=== PATIENT | male | born 1955 | race African-American/Black ===

== ENCOUNTER 2024-10-30 06:39 | Inpatient (IN) | payer MEDICARE, MEDICAID ==
[~2024-10-30] VITALS: Ht 177.8 cm; Wt 69.4 kg
[2024-10-30] VITALS (11 sets, daily range): BP systolic 129–159; BP diastolic 63–87; PULSE 67–89; RESP 14–20; TEMP 36.4–37.1; O2SAT 93–97
[~2024-10-30 06:39] MED LIST: CALC667C4 PO; GABA-1180 MT; HYDR-4005 PO; LACT10SO7 MT; SEVE800T8 MT
[2024-10-30] MEDS: ADENOSINE 3 MG/ML 2ML VIAL IV ONE ×2 (06:45→07:03)
[2024-10-30 07:44] LABS: BASOPHILS % 0.7 % (0.0-2.0); EOSINOPHILS % 5.5 % (0.0-5.0); HEMATOCRIT. 35.6 % (42.0-52.0); HEMOGLOBIN. 11.2 g/dL (14.0-18.0); LYMPHOCYTES % 14.4 % (20.0-50.0); MEAN CORPUSCULAR HEMOGLOBIN 28.9 pg (28.0-32.0); MEAN CORPUSCULAR HGB CONC 31.5 g/dL (31.0-37.0); MEAN CORPUSCULAR VOLUME 91.8 fL (80.0-94.0); MEAN PLATELET VOLUME 7.6 fl (7.4-10.4); MONOCYTES % 11.7 % (2.0-8.0); NEUTROPHILS % 67.7 % (40.0-76.0); PLATELET 197 x1000/uL (130-400); RED BLOOD CELL COUNT 3.88 mill/uL (4.7-6.1); RED CELL DISTRIBUTION WIDTH 19.1 % (11.6-14.6); WHITE BLOOD COUNT 8.9 x1000/uL (4.5-11.0)
[2024-10-30 07:53] LABS: CHLORIDE 94 mEq/L (98-107); POTASSIUM 4.1 mEq/L (3.5-5.1); SODIUM 140 mEq/L (136-145)
[2024-10-30 07:54] LABS: CALCIUM 8.9 mg/dL (8.7-10.4); CARBON DIOXIDE 33 mEq/L (21-32)
[2024-10-30 07:59] LABS: GLUCOSE 106 mg/dL (70-105); UREA NITROGEN BLOOD 24 mg/dL (9-23)
[2024-10-30 08:00] LABS: TROPONIN I HIGH SENSITIVITY 21 ng/L (3.0-53)
[2024-10-30 08:20] LABS: HEPATITIS B SURFACE ANTIGEN NEGATIVE (Negative)
[2024-10-30 08:26] LABS: CREATININE 7.6 mg/dL (0.6-1.3)
[2024-10-30 08:40] LABS: HEPATITIS A AB IGM NEGATIVE (Negative)
[2024-10-30 08:41] LABS: HEPATITIS B CORE AB IGM NEGATIVE (Negative); HEPATITIS C AB NON REACTIVE (Neg) (Negative)
[2024-10-30] MEDS: PIPERACILLIN/TAZO 3.375G/50ML 50 ML IV ONE (08:56)
[2024-10-30] MEDS: SODIUM CHLORIDE 0.9% (SEPSIS BOLUS) IV ONE (08:56)
[2024-10-30] MEDS: SODIUM CHLORIDE 0.9% 1,000 ML IV ONE (09:00)
[2024-10-30] MEDS: IOHEXOL-350 100 ML BOTTLE ONE (09:21)
[2024-10-30] MEDS: VANCOMYCIN 1G PREMIX 200 ML IV ONE (10:12)
[2024-10-30 11:36] LABS: ALANINE AMINOTRANSFERASE < 7 IU/L (10-49); ALBUMIN 3.9 g/dL (3.2-4.8); BILIRUBIN TOTAL 0.3 mg/dL (0.1-1.0); PROTEIN TOTAL 7.3 g/dL (6.0-8.3)
[2024-10-30 11:53] LABS: ASPARTATE AMINOTRANSFERASE < 8 IU/L (<34); BILIRUBIN DIRECT < 0.1 mg/dL (<=3.0)
[2024-10-30] MEDS ORDERED: IOHEXOL-350 100 ML BOTTLE ONE (13:10)
[2024-10-30] MEDS ORDERED: AMLO10TA80 PO (15:40)
[2024-10-30] MEDS: SEVELAMER CARBONATE 800 MG TABLET PO SCH (17:37)
[2024-10-30] MEDS ORDERED: CALCIUM ACETATE 667MG CAPSULE PO SCH (17:40)
[2024-10-30] MEDS ORDERED: MAGNESIUM/ALUMINUM HYDROXIDE/SIMETHICONE 30ML UDC PO PRN (20:30)
[2024-10-30] MEDS ORDERED: ONDANSETRON HCL 4MG/2ML INJ IV PRN (20:30)
[2024-10-30] MEDS ORDERED: CLONIDINE 0.1MG TABLET PO PRN (20:30)
[2024-10-30] MEDS ORDERED: DIPHENHYDRAMINE 50MG/ML VIAL IV PRN (20:30)
[2024-10-30] MEDS ORDERED: ACETAMINOPHEN 325MG TABLET PO PRN ×2 (20:30)
[2024-10-30] MEDS: GABAPENTIN 300MG CAPSULE PO SCH (20:31)
[2024-10-30] MEDS: METOPROLOL TARTRATE 25MG TABLET PO SCH (20:32)
[2024-10-30] MEDS ORDERED: NALOXONE HCL 0.4MG/ML VIAL IV PRN (21:00)
[2024-10-30] MEDS: SODIUM CHLORIDE 0.9% 3ML FLUSH IVF SCH (22:00)
[2024-10-31] VITALS: BP 131/64; PULSE 68; RESP 22; TEMP 36.7
[2024-10-31 04:00] VITALS: BP 116/68; PULSE 73; RESP 18; TEMP 36.9
[2024-10-31 06:50] LABS: CALCIUM 8.9 mg/dL (8.7-10.4)
[2024-10-31 08:00] VITALS: BP 133/68; PULSE 74; RESP 15; TEMP 36.4; O2SAT 98
[2024-10-31 08:39] LABS: CREATININE 8.1 mg/dL (0.6-1.3)
[2024-10-31] MEDS: AMLODIPINE 10MG TABLET PO SCH (08:43)
[2024-10-31] MEDS: ASPIRIN 81MG TABLET PO SCH (11:58)
[2024-10-31 12:00] VITALS: BP 125/61; PULSE 69; RESP 15; TEMP 36.7; O2SAT 97
[2024-10-31] MEDS: ENOXAPARIN 80MG/0.8ML SYR SUBCUT NR (12:07)
[2024-10-31 16:00] VITALS: BP 129/57; PULSE 70; RESP 16; TEMP 36.4; O2SAT 98
[2024-10-31 16:36] LABS: PROTHROMBIN TIME 10.7 sec (9.6-11.0)
[2024-10-31 20:00] VITALS: BP 130/60; PULSE 72; RESP 20; TEMP 37.1; O2SAT 98
[2024-10-31] MEDS: ZOLPIDEM TARTRATE 5MG TABLET PO PRN (20:48)
[2024-11-01] VITALS (15 sets, daily range): BP systolic 115–161; BP diastolic 38–76; PULSE 63–78; RESP 16–20; TEMP 36.2–37; O2SAT 93–98
[2024-11-01 07:32] LABS: BASOPHILS % 0.5 % (0.0-2.0); EOSINOPHILS % 6.6 % (0.0-5.0); HEMATOCRIT. 37.2 % (42.0-52.0); HEMOGLOBIN. 11.7 g/dL (14.0-18.0); LYMPHOCYTES % 14.7 % (20.0-50.0); MEAN CORPUSCULAR HEMOGLOBIN 28.7 pg (28.0-32.0); MEAN CORPUSCULAR HGB CONC 31.5 g/dL (31.0-37.0); MEAN CORPUSCULAR VOLUME 91.1 fL (80.0-94.0); MEAN PLATELET VOLUME 7.4 fl (7.4-10.4); MONOCYTES % 10.9 % (2.0-8.0); NEUTROPHILS % 67.3 % (40.0-76.0); PLATELET 199 x1000/uL (130-400); RED BLOOD CELL COUNT 4.08 mill/uL (4.7-6.1); RED CELL DISTRIBUTION WIDTH 19.5 % (11.6-14.6); WHITE BLOOD COUNT 7.6 x1000/uL (4.5-11.0)
[2024-11-01 08:14] LABS: POTASSIUM 5.1 mEq/L (3.5-5.1)
[2024-11-01 08:15] LABS: CALCIUM 8.9 mg/dL (8.7-10.4)
[2024-11-01] MEDS ORDERED: IODIXANOL 320MG/ML 100 ML BOTTLE IV ONE (08:47)
[2024-11-01] MEDS ORDERED: LIDOCAINE HCL 1% 20ML VIAL ONE (08:47)
[2024-11-01] MEDS ORDERED: HEPARIN 1000 UNITS/ML 10ML ONE (08:47)
[2024-11-01 09:57] LABS: CREATININE 10.3 mg/dL (0.6-1.3)
[2024-11-01] MEDS ORDERED: MIDAZOLAM HCL 2 MG/2 ML VIAL ONE (10:05)
[2024-11-01] MEDS ORDERED: DIPHENHYDRAMINE 50MG/ML VIAL ONE (10:05)
[2024-11-01] MEDS ORDERED: FENTANYL CITRATE/PF 50MCG/ML 2ML VIAL ONE (10:05)
[2024-11-01] MEDS ORDERED: VERAPAMIL HCL 2.5 MG/1 ML 2ML VIAL IV ONE (10:07)
[2024-11-01] MEDS ORDERED: HYDRALAZINE 20MG/ML VIAL ONE (10:54)
[2024-11-01 11:33] LABS: IRON 62 ug/dL (65-175)
[2024-11-01 11:36] LABS: PHOSPHORUS 6.3 mg/dL (2.5-4.9); TOTAL IRON BINDING CAPACITY 227 ug/dl (250-425)
[2024-11-01] MEDS ORDERED: ACETAMINOPHEN 325MG TABLET PO PRN (11:45)
[2024-11-01] MEDS ORDERED: ATROPINE SULFATE 1MG/10ML SYR IV PRN (11:45)
[2024-11-01] MEDS: ENOXAPARIN 80MG/0.8ML SYR SUBCUT SCH (12:00)
[2024-11-02 00:20] VITALS: BP 157/67; PULSE 68; RESP 20; TEMP 36.1; O2SAT 96
[2024-11-02] MEDS: HYDROCODONE/ACETAMINOPHEN 7.5/325MG TABLET PO PRN (00:59)
[2024-11-02 04:00] VITALS: BP 133/65; PULSE 56; RESP 18; TEMP 36.4; O2SAT 100
[2024-11-02 07:25] LABS: BASOPHILS % 0.5 % (0.0-2.0); EOSINOPHILS % 6.5 % (0.0-5.0); HEMATOCRIT. 36.4 % (42.0-52.0); HEMOGLOBIN. 11.4 g/dL (14.0-18.0); LYMPHOCYTES % 17.3 % (20.0-50.0); MEAN CORPUSCULAR HEMOGLOBIN 28.6 pg (28.0-32.0); MEAN CORPUSCULAR HGB CONC 31.4 g/dL (31.0-37.0); MEAN CORPUSCULAR VOLUME 91.3 fL (80.0-94.0); MEAN PLATELET VOLUME 7.4 fl (7.4-10.4); MONOCYTES % 13.5 % (2.0-8.0); NEUTROPHILS % 62.2 % (40.0-76.0); PLATELET 181 x1000/uL (130-400); RED BLOOD CELL COUNT 3.98 mill/uL (4.7-6.1); RED CELL DISTRIBUTION WIDTH 18.6 % (11.6-14.6); WHITE BLOOD COUNT 6.7 x1000/uL (4.5-11.0)
[2024-11-02 07:30] VITALS: BP 120/53; PULSE 62; RESP 20; TEMP 36.5; O2SAT 95
[2024-11-02 07:39] LABS: POTASSIUM 4.9 mEq/L (3.5-5.1)
[2024-11-02 07:40] LABS: CALCIUM 8.8 mg/dL (8.7-10.4)
[2024-11-02 08:36] VITALS: PULSE 62
[2024-11-02 09:01] LABS: CREATININE 8.6 mg/dL (0.6-1.3)
== END 2024-11-02 12:33 | disposition short-term general hospital (02) | DRG 280 ==
LOC: ER 06:39 → 8WST 08:35 → EDBEDREQ 08:45
PROVIDERS: ADMIT Internal Medicine; ATTEND Internal Medicine
PROC: 5A1D70Z Performance of Urinary Filtration, Intermittent, Less than 6 Hours Per Day (ICD-10-PCS; 2024-10-30)
PROC: 4A023N7 Measurement of Cardiac Sampling and Pressure, Left Heart, Percutaneous Approach (ICD-10-PCS; principal; 2024-11-01)
PROC: B211YZZ Fluoroscopy of Multiple Coronary Arteries using Other Contrast (ICD-10-PCS; 2024-11-01)
PROC: B41FYZZ Fluoroscopy of Right Lower Extremity Arteries using Other Contrast (ICD-10-PCS; 2024-11-01)
PROC: B41CYZZ Fluoroscopy of Pelvic Arteries using Other Contrast (ICD-10-PCS; 2024-11-01)
PROC: 5A1D70Z Performance of Urinary Filtration, Intermittent, Less than 6 Hours Per Day (ICD-10-PCS; 2024-11-01)
DX: I21.4 Non-ST elevation (NSTEMI) myocardial infarction (principal); I50.33 Acute on chronic diastolic (congestive) heart failure; N18.6 End stage renal disease; I47.19 Other supraventricular tachycardia; I13.2 Hypertensive heart and chronic kidney disease with heart failure and with stage 5 chronic kidney disease, or end stage renal disease; D64.9 Anemia, unspecified; I35.0 Nonrheumatic aortic (valve) stenosis; Z99.2 Dependence on renal dialysis; I48.91 Unspecified atrial fibrillation; Z79.899 Other long term (current) drug therapy; Z86.711 Personal history of pulmonary embolism; Z86.73 Personal history of transient ischemic attack (TIA), and cerebral infarction without residual deficits; Z86.718 Personal history of other venous thrombosis and embolism
CPT/HCPCS: 36415; 71045; 71275; 80048; 80076; 82962; 83540; 83550; 83605; 83735; 83880; 84100; 84145; 84484; 85025; 86705; 86709; 87340; 90935; 93005; 93306; 93454; 99291; C1769; C1887; C1893; J0153; J0360; J1200; J1644; J1650; J2250; J2543; J3010; J3370; J3490; J7030; Q9967